=== PATIENT | female | born 1960 | race Caucasian/White ===

== ENCOUNTER 2019-02-28 22:14 | Emergency (ER) | payer OTHER ==
--- NOTE | 2019-02-28 22:50 | EDM.PDOC ---
ED HPI GENERAL MEDICAL PROBLEM - General Chief Complaint: Neuro Symptoms/Deficits Stated Complaint: POSS STROKE Time Seen by Provider: 02/28/19 22:23 Source of Information: Reports: Patient, Old Records History Limitations: Reports: No Limitations - History of Present Illness INITIAL COMMENTS - FREE TEXT/NARRATIVE: Patient is a very pleasant 58-year-old female who presents tonight with concern for an episode that happened shortly before arrival where for 1 minute her face felt really funny on the left side and a funny feeling movement across her lower jaw and her mouth wasn't moving right. She felt like her speech was affected and she was having difficulty forming words. She called her who noticed that her voice was different, so they came in to be evaluated. Symptoms resolved after approximately 1 minute. She reports a similar episode on Tuesday which was lasted approximately 3 minutes, however she didn't notice the same voice changes. She describes the sensation as "facial movements" and " I feel like I had a little seizure". She denies any loss of consciousness, or alteration in sensation otherwise. She denies any changes in vision, difficulty swallowing, changes in hearing or ringing in her ears, or headache currently. She reports she did have a headache earlier this evening around 6:00 which improved after she sat down and rested a while. She's had a chronic cough for a long time, and possibly some weight loss. She can't quantify but notes that her pants feel loose. She denies any palpitations, recent cold or upper respiratory tract symptoms, nausea, vomiting or diarrhea, fever, chills or sweats, numbness or weakness or tingling in any of her extremities, or any changes in gait. Past medical history is significant for diabetes type 2, breast cancer status post chemotherapy and radiation, and single-vessel coronary artery disease with collaterals and no stents placed. She also has a history of a mitral valve leak. Family history significant for brother having lung cancer despite ever being a smoker. Headache Pain Score (Numeric/FACES): 1 - Related Data Allergies Allergy/AdvReac Type Severity Reaction Status Date / Time metoclopramide HCl Allergy Cannot Verified 02/28/19 22:34 [From Reglan] Remember Penicillins Allergy Cannot Verified 02/28/19 22:34 Remember Home Meds: Home Meds Anastrozole 1 mg PO DAILY 07/04/16 [History] Carvedilol 25 mg PO BID 07/04/16 [History] Furosemide 20 mg PO DAILY 07/04/16 [History] Levothyroxine 75 mcg PO ACBREAKFAST 07/04/16 [History] Montelukast [Singulair] 10 mg PO BEDTIME 07/04/16 [History] Sertraline [Zoloft] 100 mg PO BEDTIME 07/04/16 [History] Simvastatin 40 mg PO BEDTIME 07/04/16 [History] sitaGLIPtin Phos/Metformin HCl [Janumet 50-1,000 MG] 1 each PO BID 07/04/16 [ History] Albuterol Sulfate [Proair Respiclick] 1 puff Q4H PRN 02/28/19 [History] Losartan/Hydrochlorothiazide [Losartan-HCTZ 50-12.5 MG] 1 tab DAILY 02/28/19 [ History] Potassium Chloride 10 meq PO BID 02/28/19 [History] Past Medical History Cardiovascular History: Reports: CAD, High Cholesterol, Hypertension, [place], Other (See Below) Other Cardiovascular History: mitral valve defect [employer]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 He never smoked Oncologic: Reports: Colon, Lung - Tobacco Use Smoking Status *Q: Never Smoker - Caffeine Use Caffeine Use: Reports: Coffee - Recreational Drug Use Recreational Drug Use: No - Living Situation & Occupation Living situation: Reports: Occupation: Employed ED ROS GENERAL - Review of Systems Review Of Systems: ROS reveals no pertinent complaints other than HPI. ED EXAM, GENERAL - Physical Exam Exam: See Below Free Text/Narrative:: Gen.: Alert, very pleasant no acute distress. Tympanic membranes are clear bilaterally with normal light reflex, throat is without erythema, mucous members are moist and there is no tonsillar enlargement states. Neck is supple and there is no cervical lymphadenopathy. Lungs are clear throughout with good air movement and I do not hear any wheezes or crackles. Heart is regular rate and rhythm. Abdomen positive bowel sounds, soft nontender. Peripheral pulses +2 in the upper and lower extremities and there is no lower extremity edema. Neurologic exam shows the pupils equal and reactive, extraocular motion intact. Facial muscles are symmetric, tongue and uvula are midline. She has equal strength with shoulder shrug, muscular strength is equal bilaterally in both the upper and lower extremities with +5 out of 5 strength. Gait is normal. Intact rapid alternating movements. Course - Vital Signs Text/Narrative:: History concerning for TIA, all symptoms completely resolved and normal neuro exam now. Will get labs, EKG, CT head without contrast. Chest x-ray also ordered given patient's chronic cough Last Recorded V/S: Last Vital Signs Temp 36.3 C 02/28/19 22:14 Pulse 98 02/28/19 22:14 Resp 18 02/28/19 22:14 BP 144/78 H 02/28/19 22:14 Pulse Ox 100 02/28/19 22:14 - Orders/Labs/Meds Orders: Active Orders 24 hr Category Date Time Status EKG Documentation Completion [RC] ASDIRECTED Care 02/28/19 22:43 Active Chest 2V [CR] Stat Exams 02/28/19 22:44 Taken Head wo Cont [CT] Stat Exams 02/28/19 22:44 Taken EKG 12 Lead [EK] Routine Ther 02/28/19 22:42 Ordered Labs: Laboratory Tests 02/28/19 02/28/19 02/28/19 Range/Units 22:26 22:26 22:26 WBC 9.9 (4.5-12.0) X10-3/uL RBC 4.71 (3.23-5.20) x10(6)uL Hgb 12.6 (11.5-15.5) g/dL Hct 37.2 (30.0-51.3) % MCV 79.1 L (80-96) fL MCH 26.7 L (27.7-33.6) pg MCHC 33.7 (32.2-35.4) g/dL RDW 14.0 (11.5-15.5) % Plt Count 421 H (125-369) X10(3)uL MPV 7.8 (7.4-10.4) fL Neut % (Auto) 73.0 (46-82) % Lymph % (Auto) 18.8 (13-37) % Stark % (Auto) 5.2 (4-12) % Eos % (Auto) 2 (1.0-5.0) % Baso % (Auto) 1 (0-2) % Neut # (Auto) 7.2 (1.6-8.3) # Lymph # (Auto) 1.9 (0.6-5.0) # Stark # (Auto) 0.5 (0.0-1.3) # Eos # (Auto) 0.2 (0.0-0.8) # Baso # (Auto) 0.1 (0.0-0.2) # PT 11.1 (8.7-11.1) INR 1.14 H (0.89-1.13) Sodium 133 L (135-145) mmol/L Potassium 3.7 (3.5-5.3) mmol/L Chloride 94 L (100-110) mmol/L Carbon Dioxide 29 (21-32) mmol/L BUN 12 (7-18) mg/dL Creatinine 0.8 (0.55-1.02) mg/dL Est Cr Clr Drug Dosing 70.88 mL/min Estimated GFR (MDRD) > 60 (>60) BUN/Creatinine Ratio 15.0 (9-20) Glucose 119 H (80-116) mg/dL Calcium 9.1 (8.6-10.2) mg/dL Total Bilirubin 0.4 (0.1-1.3) mg/dL AST 15 (5-25) IU/L ALT 21 (12-36) U/L Alkaline Phosphatase 107 (56-112) IU/L Troponin I (<0.017-0.056) ng/mL Total Protein 8.9 H (6.0-8.0) g/dL Albumin 3.3 L (3.5-5.2) g/dL Globulin 5.6 g/dL Albumin/Globulin Ratio 0.6 02/28/19 Range/Units 22:26 WBC (4.5-12.0) X10-3/uL RBC (3.23-5.20) x10(6)uL Hgb (11.5-15.5) g/dL Hct (30.0-51.3) % MCV (80-96) fL MCH (27.7-33.6) pg MCHC (32.2-35.4) g/dL RDW (11.5-15.5) % Plt Count (125-369) X10(3)uL MPV (7.4-10.4) fL Neut % (Auto) (46-82) % Lymph % (Auto) (13-37) % Stark % (Auto) (4-12) % Eos % (Auto) (1.0-5.0) % Baso % (Auto) (0-2) % Neut # (Auto) (1.6-8.3) # Lymph # (Auto) (0.6-5.0) # Stark # (Auto) (0.0-1.3) # Eos # (Auto) (0.0-0.8) # Baso # (Auto) (0.0-0.2) # PT (8.7-11.1) INR (0.89-1.13) Sodium (135-145) mmol/L Potassium (3.5-5.3) mmol/L Chloride (100-110) mmol/L Carbon Dioxide (21-32) mmol/L BUN (7-18) mg/dL Creatinine (0.55-1.02) mg/dL Est Cr Clr Drug Dosing mL/min Estimated GFR (MDRD) (>60) BUN/Creatinine Ratio (9-20) Glucose (80-116) mg/dL Calcium (8.6-10.2) mg/dL Total Bilirubin (0.1-1.3) mg/dL AST (5-25) IU/L ALT (12-36) U/L Alkaline Phosphatase (56-112) IU/L Troponin I < 0.017 L (<0.017-0.056) ng/mL Total Protein (6.0-8.0) g/dL Albumin (3.5-5.2) g/dL Globulin g/dL Albumin/Globulin Ratio - Re-Assessments/Exams Free Text/Narrative Re-Assessment/Exam: 03/01/19 00:22 labs reviewed, reviewed CXR and CT head also. Left upper lobe lesion noted and right-sided brain mass seen. Discussed with [facility] who reports both lung and brain tumor are visible, with edema around the brain tumor, slight local mass effect, no midline shift. Discussed results with patient and her . Given her 2 seizures, recommended transfer to [place] for further evaluation and follow-up. Discussed with [place] hospitalist, Dr Gonsalves accepting recommended transfer by ambulance, patient and decline. Discussed risks and they are aware. He will drive [facility] following discharge from ER. Departure - Departure Time of Disposition: 01:00 Disposition: DC/Tfer to Acute Hospital 02 Condition: Undetermined Clinical Impression: Lung mass, Brain tumor, Hyponatremia - Discharge Information *PRESCRIPTION DRUG MONITORING PROGRAM REVIEWED*: Not Applicable *COPY OF PRESCRIPTION DRUG MONITORING REPORT IN PATIENT ROB: Not Applicable Referrals: Tony Payne MD [Primary Care Provider] - Forms: ED Department Discharge - My Orders Last 24 Hours: My Active Orders 02/28/19 22:42 EKG 12 Lead [EK] Routine 02/28/19 22:43 EKG Documentation Completion [RC] ASDIRECTED 02/28/19 22:44 Chest 2V [CR] Stat Head wo Cont [CT] Stat - Assessment/Plan Last 24 Hours: My Active Orders 02/28/19 22:42 EKG 12 Lead [EK] Routine 02/28/19 22:43 EKG Documentation Completion [RC] ASDIRECTED 02/28/19 22:44 Chest 2V [CR] Stat Head wo Cont [CT] Stat
[2019-03-01 01:13] VITALS: BP 154/97; PULSE 95
== END 2019-03-01 01:16 ==
LOC: FB.ED 22:14
DX: D49.6 Neoplasm of unspecified behavior of brain (principal); J98.4 Other disorders of lung; E87.1 Hypo-osmolality and hyponatremia; I10 Essential (primary) hypertension; E11.9 Type 2 diabetes mellitus without complications; I25.2 Old myocardial infarction; I25.10 Atherosclerotic heart disease of native coronary artery without angina pectoris; E03.9 Hypothyroidism, unspecified; E78.00 Pure hypercholesterolemia, unspecified; Z79.899 Other long term (current) drug therapy; Z88.0 Allergy status to penicillin; Z88.8 Allergy status to other drugs, medicaments and biological substances
CPT/HCPCS: 36415; 70450; 71046; 80053; 82962; 84484; 85025; 85610; 93005; 99285-25